=== PATIENT | male | born 1955 | race Caucasian/White ===

== ENCOUNTER → 2018-05-29 | Outpatient (CLI) | payer BC ==
[2018-05-29] MEDS: BARIUM SULFATE 135 ML (E-Z HD) PO (09:20)
[2018-05-29] MEDS: SIMETH/SOD BICARB/CIT AC PKT (E-Z- GAS II) PO ×2 (09:25→10:30)
== END | disposition home or self-care (01) ==
LOC: RAD 08:30
DX: K29.70 Gastritis, unspecified, without bleeding (principal)
CPT/HCPCS: 74240; 74250

== ENCOUNTER 2018-11-27 10:09 | Day surgery (SDC) | payer BC ==
[2018-11-27] MEDS ORDERED: PROPOFOL 40 ML (11:37)
== END 2018-11-27 13:09 | disposition home or self-care (01) ==
LOC: GIL 10:09
DX: Z12.11 Encounter for screening for malignant neoplasm of colon (principal); K64.8 Other hemorrhoids; K57.30 Diverticulosis of large intestine without perforation or abscess without bleeding; K29.60 Other gastritis without bleeding; I10 Essential (primary) hypertension
CPT/HCPCS: 43239; 88305; 88312